=== PATIENT | male | born 1980 | race Caucasian/White ===

== ENCOUNTER 2022-06-30 02:32 | Emergency (ER) | payer BC ==
[2022-06-30 03:29] LABS: Urine Bacteria None Seen /HPF (<20); Urine Bilirubin NEGATIVE (Negative); Urine Blood Negative (Negative); Urine Clarity Clear (Clear); Urine Color Colorless (Yellow); Urine Glucose NEGATIVE (Negative); Urine Mucus Slight /HPF (None Seen); Urine Protein NEGATIVE (Negative); Urine RBC <5 /HPF (None Seen); Urine Urobilinogen Normal (Normal); Urine pH 6.5 (5.0-7.0)
--- NOTE | 2022-06-30 03:52 | ER ---
Nurse's Notes [facility] Name: Rashaad Montanez Age: 42 yrs Sex: Male : 1980 Arrival Date: 06/30/2022 Time: 02:34 Bed 5 Private MD: Diagnosis: Urinary retention Presentation: 06/30 02:53 Chief complaint: Patient states: "I haven't been able to pee since yesterday at 6:30". as6 Coronavirus screen: At this time, the client does not indicate any symptoms associated with coronavirus-19. Ebola Screen: No symptoms or risks identified at this time. Initial Sepsis Screen: Does the patient meet any 2 criteria? No. Patient's initial sepsis screen is negative. Does the patient have a suspected source of infection? No. Patient's initial sepsis screen is negative. Risk Assessment: Do you want to hurt yourself or someone else? Patient reports no desire to harm self or others. Onset of symptoms was June 29, 2022 at 18:30. 02:53 Acuity: NICA 4 as6 02:53 Method Of Arrival: Law Enforcement: [place] [employer] as6 Historical: - Allergies: 02:53 No Known Allergies; as6 - PMHx: 02:53 Multiple sclerosis; as6 - PSHx: 02:53 None; as6 - Immunization history:: Client reports receiving the 2nd dose of the Covid vaccine, moderna and pfizer. - Social history:: Smoking status: Patient denies any tobacco usage or history of. Screenin:[address] [facility] ED Fall Risk Assessment (Adult) Score/Fall Risk Level 0 - 2 = Low Risk. Abuse as6 screen: Denies threats or abuse. Denies injuries from another. Nutritional screening: No deficits noted. Tuberculosis screening: No symptoms or risk factors identified. Assessment: 03:00 General: Appears uncomfortable, Behavior is calm, cooperative. Pain: Complains of pain as6 in suprapubic area. Neuro: Level of Consciousness is awake, alert, obeys commands, Oriented to person, place, time, situation. Respiratory: Respiratory effort is even, unlabored, Respiratory pattern is regular, symmetrical. : Reports inability to void. Vital Signs: 02:53 BP 125 / 71; Pulse 76; Resp 18 S; Temp 97.9(O); Pulse Ox 97% on R/A; Weight 88.45 kg as6 (R); Height 5 ft. 7 in. (R); Pain 9/10; 03:57 BP 121 / 78; Pulse 67; Resp 18 S; Pulse Ox 99% on R/A; ll3 02:53 Body Mass Index 30.54 (88.45 kg, 170.18 cm) as6 02:53 Pain Scale: Adult as6 ED Course: 02:34 Patient arrived in ED. rv1 02:37 Reza Salazar MD is Attending Physician. sp3 02:39 Mike Pérez, RN is Primary Nurse. as6 02:52 Ann cath inserted, using sterile technique, 16 Fr., by mo, balloon inflated, to as6 gravity drainage, urine specimen collected. returned clear yellow urine. Patient tolerated well. 02:53 Arm band placed on. as6 02:55 Triage completed. as6 02:55 Bed in low position. Call light in reach. Side rails up X 1. Security at bedside. as6 04:19 No provider procedures requiring assistance completed. Ann cath removed intact, as6 balloon deflated. Patient did not have IV access during this emergency room visit. Administered Medications: No medications were administered Medication: 02:55 VIS not applicable for this client. as6 Outcome: 03:51 Discharge ordered by . sp3 04:19 Discharged to Law Enforcement as6 04:19 Condition: stable 04:19 Discharge instructions given to patient, Instructed on discharge instructions, follow up and referral plans. Demonstrated understanding of instructions, follow-up care. 04:20 Patient left the ED. as6 Signatures: Reza Salazar MD MD sp3 Mike Pérez, RN RN as6 Angelica Wade RN RN 3 Aliyah Kimble rv1
--- NOTE | 2022-06-30 03:52 | EDPHYS ---
Physician Documentation [facility] Name: Rashaad Montanez Age: 42 yrs Sex: Male : 1980 Arrival Date: 06/30/2022 Time: 02:34 Bed 5 Private MD: ED Physician Reza Salazar HPI: 06/30 02:39 This 42 yrs old Male presents to ER via Unassigned with complaints of Urinary retention.sp3 02:40 42-year-old male resident of [facility] presents with chief complaint sp3 urinary retention since approximately 6:30 PM yesterday. No prior history of the same. Patient reports no back pain, fever, abdominal pain, nausea, vomiting, diarrhea, chest pain, shortness of breath, dysuria, hematuria, prior history of kidney stone, STI, or any other symptoms on ROS at this time.. Historical: - Allergies: 02:53 No Known Allergies; as6 - PMHx: 02:53 Multiple sclerosis; as6 - PSHx: 02:53 None; as6 - Immunization history:: Client reports receiving the 2nd dose of the Covid vaccine, moderna and [employer]. - Social history:: Smoking status: Patient denies any tobacco usage or history of. ROS: 02:40 Constitutional: Negative for fever, chills, and weight loss, Eyes: Negative for injury, sp3 pain, redness, and discharge, ENT: Negative for injury, pain, and discharge, Neck: Negative for injury, pain, and swelling, Cardiovascular: Negative for chest pain, palpitations, and edema, Respiratory: Negative for shortness of breath, cough, wheezing, and pleuritic chest pain, Abdomen/GI: Negative for abdominal pain, nausea, vomiting, diarrhea, and constipation, Back: Negative for injury and pain, MS/Extremity: Negative for injury and deformity, Skin: Negative for injury, rash, and discoloration, Neuro: Negative for headache, weakness, numbness, tingling, and seizure, Psych: Negative for depression, anxiety, suicide ideation, homicidal ideation, and hallucinations, Allergy/Immunology: Negative for hives, rash, and allergies, Endocrine: Negative for neck swelling, polydipsia, polyuria, polyphagia, and marked weight changes. 02:40 All other systems are negative. Exam: 02:41 Constitutional: This is a well developed, well nourished patient who is awake, alert, sp3 and in no acute distress. Head/Face: Normocephalic, atraumatic. Neck: Trachea midline, no thyromegaly or masses palpated, and no cervical lymphadenopathy. Supple, full range of motion without nuchal rigidity, or vertebral point tenderness. No Meningismus. Chest/axilla: Normal chest wall appearance and motion. Nontender with no deformity. No lesions are appreciated. Cardiovascular: Regular rate and rhythm with a normal S1 and S2. No gallops, murmurs, or rubs. Normal PMI, no JVD. No pulse deficits. Respiratory: Lungs have equal breath sounds bilaterally, clear to auscultation and percussion. No rales, rhonchi or wheezes noted. No increased work of breathing, no retractions or nasal flaring. Abdomen/GI: Soft, non-tender, with normal bowel sounds. No distension or tympany. No guarding or rebound. No evidence of tenderness throughout. Skin: Warm, dry with normal turgor. Normal color with no rashes, no lesions, and no evidence of cellulitis. MS/ Extremity: Pulses equal, no cyanosis. Neurovascular intact. Full, normal range of motion. Neuro: Awake and alert, GCS 15, oriented to person, place, time, and situation. Cranial nerves II-XII grossly intact. Motor strength 5/5 in all extremities. Sensory grossly intact. Cerebellar exam normal. Normal gait. 02:41 Abdomen/GI: Distended bladder. No peritoneal signs palpation.. Vital Signs: 02:53 BP 125 / 71; Pulse 76; Resp 18 S; Temp 97.9(O); Pulse Ox 97% on R/A; Weight 88.45 kg as6 (R); Height 5 ft. 7 in. (R); Pain 9/10; 03:57 BP 121 / 78; Pulse 67; Resp 18 S; Pulse Ox 99% on R/A; ll3 02:53 Body Mass Index 30.54 (88.45 kg, 170.18 cm) as6 02:53 Pain Scale: Adult as6 MDM: 02:39 Patient medically screened. sp3 02:41 Data reviewed: vital signs, nurses notes, lab test result(s). ED course: 42-year-old sp3 male with urinary retention. Consider UTI versus kidney stone versus outflow obstruction including prostate. Patient is also on baclofen for multiple sclerosis. Consider discharge on leg bag versus DC Ann and follow-up with urology. Suspicious of neurogenic bladder or other neurological condition as an etiology for his symptoms.. 03:49 ED course: Patient is now completely relieved and all symptoms resolved. Urine analysis sp3 is normal and shows no infection. I have told patient that on the first episode of cellulitis, we normally do not leave the catheter in. If it happens again we will leave it in at that time. Given his MS history, I have recommended him to follow-up with his neurologist in [place].. 06/30 02:38 Order name: Urinalysis W/Microscopic; Complete Time: 03:46 sp3 06/30 02:38 Order name: Ann; Complete Time: 02:52 sp3 Administered Medications: No medications were administered Disposition Summary: 06/30/22 03:51 Discharge Ordered Location: Home sp3 Condition: Stable sp3 Diagnosis - Urinary retention sp3 Followup: sp3 - With: Private Physician - When: Upon discharge from the Emergency Department - Reason: Further diagnostic work-up, Recheck today's complaints Discharge Instructions: - Discharge Summary Sheet sp3 - Acute Urinary Retention, Male sp3 Forms: - Medication Reconciliation Form sp3 - Thank You Letter sp3 - Antibiotic Education sp3 - Prescription Opioid Use sp3 Signatures: Dispatcher [employer] Reza Andrade MD MD sp3 Mike Pérez, RN RN as6
[2022-06-30 12:53] VITALS: TEMP 97.9
[2022-06-30 12:54] VITALS: BP 121/78; O2SAT 99
== END 2022-06-30 04:20 | disposition home or self-care (01) ==
LOC: ER 02:32
DX: R33.9 Retention of urine, unspecified (principal)
CPT/HCPCS: 51702; 81001; 99284